=== PATIENT | female | born 1995 | race African-American/Black ===

== ENCOUNTER 2016-11-29 18:16 | Emergency (ER) | payer BC ==
[~2016-11-29] VITALS: Ht 167.6 cm; Wt 70.5 kg
[~2016-11-29 18:16] MED LIST: DICL50TA3 PO; DOXY100T PO; METR-1 PO; Z.0.BCPILL PO; ZOFR4TAB3 SL
[2016-11-29 18:18] VITALS: BP 127/74; PULSE 81; RESP 14; TEMP 98.1; O2SAT 98
--- NOTE | 2016-11-29 18:31 | PD ---
HPI Chief Complaint: Complaint Time Seen by Provider: 18:20 Travel History International Travel<30 days: No Contact w/Intl Traveler<30days: No Traveled to known affect area: No History of Present Illness HPI 21-year-old female presents for evaluation of dysuria and increased urinary frequency. Symptoms started 3 days ago. She has a burning sensation when she urinates. She notices some suprapubic discomfort as well. She denies any flank pain, nausea or vomiting, diarrhea or constipation, vaginal bleeding or discharge. She thinks that she may have had a fever 2 days ago but she is uncertain. Denies any significant past medical history. She has no other complaints at this time. PFS Past Medical History ?: Unknown LMP: 11/09/2016 Social History Alcohol Use: No Tobacco Use: Yes (rarely) Substance Use: No Allergies-Medications (Allergen,Severity, Reaction): Coded Allergies: Bee Sting (Verified Allergy, Severe, Anaphylaxis, 11/29/16) Cinnamon (Verified Adverse Reaction, Severe, Nausea/Vomiting, 11/29/16) Reported Meds & Prescriptions Reported Meds & Active Scripts Active Macrobid (Nitrofurantoin Monoh/Nitrofur Macro) 100 Mg Cap 100 Mg PO BID 7 Days Review of Systems Except as stated in HPI: all other systems reviewed are Neg Physical Exam Narrative GENERAL: Pleasant well-developed well-nourished female in no acute distress conversing comfortably on cell phone during examination. SKIN: Warm and dry. HEAD: Atraumatic. Normocephalic. EYES: Pupils equal and round. No scleral icterus. No injection or drainage. ENT: No nasal bleeding or discharge. Mucous membranes pink and moist. NECK: Trachea midline. No JVD. CARDIOVASCULAR: Regular rate and rhythm. No murmur appreciated. RESPIRATORY: No accessory muscle use. Clear to auscultation. Breath sounds equal bilaterally. GASTROINTESTINAL: Abdomen soft, mild suprapubic discomfort to palpation without guarding. There is no CVA tenderness. No palpable masses. MUSCULOSKELETAL: No obvious deformities. Normal gait. NEUROLOGICAL: Awake and alert. No obvious cranial nerve deficits. Motor grossly within normal limits. Normal speech. PSYCHIATRIC: Appropriate mood and affect; insight and judgment normal. Data Data Last Documented VS Vital Signs Date Time Temp Pulse Resp B/P Pulse Ox O2 Delivery O2 Flow Rate FiO2 11/29/16 18:18 98.1 81 14 127/74 98 Room Air Orders Urinalysis - C+S If Indicated (11/29/16 18:24) Ed Urine Pregnancytest Poc (11/29/16 18:24) Urine Culture (11/29/16 15:30) Labs Laboratory Tests Test 11/29/16 15:30 Urine Color YELLOW Urine Turbidity HAZY Urine pH 5.5 Urine Specific [place] 1.016 Urine Protein NEG mg/dL Urine Glucose (UA) NEG mg/dL Urine Ketones NEG mg/dL Urine Occult Blood NEG Urine Nitrite NEG Urine Bilirubin NEG Urine Urobilinogen LESS THAN 2.0 MG/DL Urine Leukocyte Esterase LARGE Urine RBC 3 /hpf Urine WBC 2 /hpf Urine Squamous Epithelial 15 /hpf Cells Urine Bacteria MOD /hpf Urine Mucus FEW /lpf Microscopic Urinalysis Comment CULTURE INDICATED MDM Medical Decision Making Medical Screen Exam Complete: Yes Emergency Medical Condition: Yes Medical Record Reviewed: Yes Differential Diagnosis Cystitis, urethritis, pyelonephritis, pelvic inflammatory disease, appendicitis , tubo-ovarian abscess, diverticulitis, ectopic , intrauterine Narrative Course 21-year-old female with 3 days of dysuria and increased urinary frequency. Physical examination is benign. Urinalysis and urine test were ordered. Urinalysis reveals large leukocytes, moderate bacteria, cultures pending. Urine test is negative. Pending culture results the patient will be discharged with a prescription for Macrobid. Diagnosis Primary Impression: Cystitis Additional Instructions: Medication as prescribed. Stay well hydrated and well-nourished. Follow-up with primary care physician as needed. Return for any emergent medical conditions. Med/Other Pt SpecificInfo: Prescription(s) given Scripts Nitrofurantoin Monohydrate Macrocrystals (Macrobid)100 Mg Cpd032 Mg PO BID 7 Days Ref 0 Prov:Javier Eddy MD 11/29/16 Disposition: 01 DISCHARGE HOME Condition: Stable Randy Sahu Nov 29, 2016 18:31 Randy Sahu Nov 29, 2016 18:31
[2016-11-29 18:50] LABS: BACTERIA, URINE MOD /hpf; BLOOD, URINE NEG (NEG); COMMENT (UR) CULTURE INDICATED; CULTURE IF INDICATED CULTURE INDICATED; GLUCOSE,URINE NEG (NEG); KETONE, URINE NEG (NEG); MUCUS URINE FEW /lpf (OCC); NITRITE,URINE NEG (NEG); PH, URINE 5.5 (5.0-8.5); SQUAMOUS EPITHELIAL CELL URINE 15 /hpf (0-5); URINE COLOR YELLOW (YELLW/STRAW)
[2016-11-29] MEDS ORDERED: MACR100C2 PO (18:53)
== END 2016-11-29 19:18 | disposition home or self-care (01) ==
LOC: NEPB 18:16
DX: N30.90 Cystitis, unspecified without hematuria (principal)
CPT/HCPCS: 81001; 84703; 87086; 99283

== ENCOUNTER 2017-02-13 20:48 | Emergency (ER) | payer BC ==
[~2017-02-13] VITALS: Ht 167.6 cm; Wt 68.0 kg
[~2017-02-13 20:48] MED LIST changes: -DICL50TA3 PO; -DOXY100T PO; +MACR100C2 PO; -METR-1 PO; -Z.0.BCPILL PO; -ZOFR4TAB3 SL
[2017-02-13 20:50] VITALS: BP 119/76; PULSE 88; RESP 16; TEMP 99.4; O2SAT 97
--- NOTE | 2017-02-13 21:54 | PD ---
HPI Chief Complaint: Abdominal Pain Time Seen by Provider: 21:43 Travel History International Travel<30 days: No Contact w/Intl Traveler<30days: No Traveled to known affect area: No History of Present Illness HPI 21-year-old female complains of vaginal discharge and low abdominal pelvic pain. Patient states that the pain started yesterday. Patient states that the constant pain burning pain localized to lower abdomen pelvic area. Patient denies any pain radiation. Patient states that she has vaginal discharge since yesterday also. Patient denies any fever chills. Patient denies any back pain. Patient denies any chance of being . Patient was seen in emergency room and treated last year for PID. Patient complains of dysuria and frequency also. PFSH Past Medical History Genitourinary: Yes (UTI) Tetanus Vaccination: > 5 Years Influenza Vaccination: No ?: Not LMP: 2 WEEKS AGO Past Surgical History Surgical History: No Previous Surgery Social History Alcohol Use: No Tobacco Use: No (rarely) Substance Use: No Allergies-Medications (Allergen,Severity, Reaction): Coded Allergies: Bee Sting (Verified Allergy, Severe, Anaphylaxis, 02/13/17) Cinnamon (Verified Adverse Reaction, Severe, Nausea/Vomiting, 02/13/17) Reported Meds & Prescriptions Reported Meds & Active Scripts Active Mobic (Meloxicam) 15 Mg Tab 15 Mg PO DAILY Ultram (Tramadol HCl) 50 Mg Tab 50 Mg PO Q6H PRN Flagyl (Metronidazole) 500 Mg Tab 4 Tab PO ONCE Doxycycline Hyclate 100 Mg Tab 100 Mg PO BID Review of Systems General / Constitutional: No: Fever Eyes: No: Visual changes HENT: No: Headaches Cardiovascular: No: Chest Pain or Discomfort Respiratory: No: Shortness of Breath Gastrointestinal: Positive: Abdominal Pain Genitourinary: Positive: Frequency, Dysuria, Pelvic Pain, Discharge Musculoskeletal: No: Pain Skin: No Rash Neurologic: No: Weakness Psychiatric: No: Depression Endocrine: No: Polydipsia Hematologic/Lymphatic: No: Easy Bruising Physical Exam Narrative GENERAL: Well-nourished, well-developed patient. SKIN: Focused skin assessment warm/dry. HEAD: Normocephalic. EYES: No scleral icterus. No injection or drainage. NECK: Supple, trachea midline. No JVD or lymphadenopathy. CARDIOVASCULAR: Regular rate and rhythm without murmurs, gallops, or rubs. RESPIRATORY: Breath sounds equal bilaterally. No accessory muscle use. GASTROINTESTINAL: Abdomen soft, nondistended. Patient has Mild tenderness on palpation of lower abdomen suprapubic area. No rebound tenderness. No mass. MUSCULOSKELETAL: No cyanosis, or edema. BACK: Nontender without obvious deformity. No CVA tenderness. 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 Positive cervical motion tenderness. Uterus is nonenlarged with moderate tenderness on palpation. No adnexal mass or tenderness. Data Data Last Documented VS Vital Signs Date Time Temp Pulse Resp B/P Pulse Ox O2 Delivery O2 Flow Rate FiO2 02/13/17 20:50 99.4 88 16 119/76 97 Room Air Orders Gc And Chlamydia Pcr (02/13/17 21:50) Wet Prep Profile (02/13/17 21:50) Urinalysis - C+S If Indicated (02/13/17 21:50) Ed Urine Pregnancytest Poc (02/13/17 21:50) Azithromycin Powd Pack (Zithromax Powd P (02/13/17 22:15) Ceftriaxone Inj (Rocephin Inj) (02/13/17 22:15) Urine Culture (02/13/17 21:55) Labs Laboratory Tests Test 02/13/17 21:55 Urine Color YELLOW Urine Turbidity HAZY Urine pH 6.5 Urine Specific [place] 1.019 Urine Protein TRACE mg/dL Urine Glucose (UA) NEG mg/dL Urine Ketones NEG mg/dL Urine Occult Blood NEG Urine Nitrite NEG Urine Bilirubin NEG Urine Urobilinogen LESS THAN 2.0 MG/DL Urine Leukocyte Esterase LARGE Urine RBC 5 /hpf Urine WBC 26 /hpf Urine Squamous Epithelial 2 /hpf Cells Urine Bacteria RARE /hpf Microscopic Urinalysis Comment CULTURE INDICATED Clue Cells (Wet Prep) NONE SEEN Vaginal Trichomonas (Wet Prep) NONE SEEN Vaginal Yeast (Wet Prep) NONE SEEN MDM Medical Decision Making Medical Screen Exam Complete: Yes Emergency Medical Condition: Yes Interpretation(s) 12:05 AM. UA positive for WBC and bacteria. Wet prep negative. Urine test negative. Differential Diagnosis Differential diagnosis including cervicitis,, PID, UTI, pyelonephritis, nephrolithiasis. Narrative Course 21-year-old female with vaginal discharge and low abdominal pelvic pain and dysuria and frequency. Rocephin 2050 mg IM. Zithromax 1 g by mouth. Diagnosis Primary Impression: PID (acute pelvic inflammatory disease) Patient Instructions: General Instructions Additional Instructions: Take medications as directed. Follow-up with personal physician. Call back for results of the culture. Return if worse. Med/Other Pt SpecificInfo: Prescription(s) given Scripts Meloxicam (Mobic)15 Mg Tab15 Mg PO DAILY #10 TAB Ref 0 Prov:Temo Bennett MD 02/13/17 Tramadol (Ultram)50 Mg Tab50 Mg PO Q6H PRN (PAIN) #12 TAB Ref 0 Prov:Temo Bennett MD 02/13/17 Metronidazole (Flagyl)500 Mg Tab4 Tab PO ONCE #4 TAB Ref 0 Prov:Temo Bennett MD 02/13/17 Doxycycline Hyclate 100 Mg [id number] Mg PO BID #14 TAB Prov:Temo Bennett MD 02/13/17 Disposition: 01 DISCHARGE HOME Condition: Stable Temo Bennett MD Feb 13, 2017 21:54 Temo Bennett MD Feb 13, 2017 21:54
[2017-02-13] MEDS ORDERED: ULTR50TA5 PO (22:08)
[2017-02-13] MEDS ORDERED: DOXY100T PO (22:08)
[2017-02-13] MEDS ORDERED: MOBI15TA PO (22:08)
[2017-02-13] MEDS ORDERED: METR-1 PO (22:08)
[2017-02-13 22:10] LABS: BACTERIA, URINE RARE /hpf; BLOOD, URINE NEG (NEG); COMMENT (UR) CULTURE INDICATED; CULTURE IF INDICATED CULTURE INDICATED; GLUCOSE,URINE NEG (NEG); KETONE, URINE NEG (NEG); NITRITE,URINE NEG (NEG); PH, URINE 6.5 (5.0-8.5); SQUAMOUS EPITHELIAL CELL URINE 2 /hpf (0-5); URINE COLOR YELLOW (YELLW/STRAW)
[2017-02-13] MEDS ORDERED: AZITHROMYCIN PWD FOR SUSP 1 GM PACKET PO ONE (22:15)
[2017-02-13] MEDS ORDERED: cefTRIAXone 250 MG VIAL IM ONE (22:15)
[2017-02-14 03:07] LABS: CHLAMYDIA PCR NOT DETECTED (NOT DETECT); NEISSERIA PCR NOT DETECTED (NOT DETECT)
== END 2017-02-14 00:47 | disposition home or self-care (01) ==
LOC: NEPD 20:48
DX: N73.9 Female pelvic inflammatory disease, unspecified (principal)
CPT/HCPCS: 81001; 84703; 86403; 87086; 87210; 87491; 87591; 96372; 99284; J0696

== ENCOUNTER 2017-02-16 15:40 | Emergency (ER) | payer BC ==
[~2017-02-16] VITALS: Ht 167.6 cm; Wt 69.0 kg
[~2017-02-16 15:40] MED LIST changes: +DOXY100T PO; -MACR100C2 PO; +METR-1 PO; +MOBI15TA PO; +ULTR50TA5 PO
[2017-02-16 15:43] VITALS: BP 119/72; PULSE 106; RESP 15; TEMP 99.8; O2SAT 100
[2017-02-16] MEDS ORDERED: SODIUM CHLOR 0.9% 1000 ML INJ 1,000 ML IV SCH (15:59)
[2017-02-16] MEDS ORDERED: SODIUM CHLORIDE 0.9% FLUSH 10 ML FLUSH IV FLUSH PRN (16:00)
--- NOTE | 2017-02-16 16:01 | PD ---
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 Patient states that she was seen in our emergency department 2 days ago and diagnosed with PID and a urinary tract infection and given antibiotics and discharged with doxycycline and Flagyl. States that she has been taking the antibiotics as prescribed. States that her pain has been worsening since then. She complains of subjective fevers. States that she has vomited several times but states that this occurred right after taking the pain medication she was prescribed, states that she think she is allergic to this medication. Denies diarrhea, constipation, hematuria, vaginal discharge, cough or cold symptoms. States that she started her menstrual cycle a few days ago. Denies any prior abdominal surgeries. No other complaints. PFSH Past Medical History Medical History: Denies Significant Hx Genitourinary: Yes (UTI) Tetanus Vaccination: Unknown Influenza Vaccination: No ?: Not LMP: 02/16/2017 Past Surgical History Surgical History: No Previous Surgery Social History Alcohol Use: No Tobacco Use: No Substance Use: No Allergies-Medications (Allergen,Severity, Reaction): Coded Allergies: Bee Sting (Verified Allergy, Severe, Anaphylaxis, 02/13/17) Cinnamon (Verified Adverse Reaction, Severe, Nausea/Vomiting, 02/13/17) Reported Meds & Prescriptions Reported Meds & Active Scripts Active Augmentin (Amoxicillin-Clavulanate) 875-125 mg Tab 875 Mg PO BID 10 Days not for use in CrCl <30 ml/min. Mobic (Meloxicam) 15 Mg Tab 15 Mg PO DAILY Ultram (Tramadol HCl) 50 Mg Tab 50 Mg PO Q6H PRN Flagyl (Metronidazole) 500 Mg Tab 4 Tab PO ONCE Doxycycline Hyclate 100 Mg Tab 100 Mg PO BID Review of Systems Except as stated in HPI: all other systems reviewed are Neg Physical Exam Narrative GENERAL: Well-nourished and well-developed pleasant patient in no acute distress who is nontoxic appearing. SKIN: Warm and dry. HEAD: Normocephalic and atraumatic. EYES: No injection, drainage, or hyphema noted. PERRLA. EOMI. ENT: No nasal drainage noted. Oropharynx is clear. NECK: Supple and the trachea is midline. CARDIOVASCULAR: Regular rate and rhythm. RESPIRATORY: Breath sounds are equal bilaterally with no accessory muscle use, wheezing, rhonchi, or crackles. GASTROINTESTINAL: Left, middle and right lower abdominal tenderness to palpation. Rebound tenderness. No guarding. Abdomen is soft and nondistended. MUSCULOSKELETAL: No obvious deformities, swelling, cyanosis, or ecchymosis is present throughout the upper and lower extremities. Patient has full range of motion without any signs of neurovascular compromise. NEUROLOGICAL: Awake, alert, and oriented. Normal speech and gait. Cranial nerves are grossly intact. Data Data Last Documented VS Vital Signs Date Time Temp Pulse Resp B/P Pulse Ox O2 Delivery O2 Flow Rate FiO2 02/16/17 15:43 99.8 106 15 119/72 100 Orders Complete Blood Count With Diff (02/16/17 15:59) Comprehensive Metabolic Panel (02/16/17 15:59) Lipase (02/16/17 15:59) Urinalysis - C+S If Indicated (02/16/17 15:59) Ct Abd/Pel W Iv Contrast(Rout) (02/16/17 15:59) Iv Access Insert/Monitor (02/16/17 15:59) Ecg Monitoring (02/16/17 15:59) Oximetry (02/16/17 15:59) Sodium Chlor 0.9% 1000 Ml Inj (Ns 1000 M (02/16/17 15:59) Sodium Chloride 0.9% Flush (Ns Flush) (02/16/17 16:00) Ed Urine Pregnancytest Poc (02/16/17 15:59) Urine Culture (02/16/17 16:30) Iohexol 350 Inj (Omnipaque 350 Inj) (02/16/17 17:18) Ceftriaxone Inj (Rocephin Inj) (02/16/17 18:00) Ketorolac Inj (Toradol Inj) (02/16/17 18:00) Labs Laboratory Tests Test 02/16/17 02/16/17 16:10 16:30 White Blood Count 6.8 TH/MM3 Red Blood Count 4.21 MIL/MM3 Hemoglobin 11.9 GM/DL Hematocrit 35.6 % Mean Corpuscular Volume 84.4 FL Mean Corpuscular Hemoglobin 28.3 PG Mean Corpuscular Hemoglobin 33.5 % Concent Red Cell Distribution Width 16.0 % Platelet Count 237 TH/MM3 Mean Platelet Volume 8.8 FL Neutrophils (%) (Auto) 69.8 % Lymphocytes (%) (Auto) 9.6 % Monocytes (%) (Auto) 18.5 % Eosinophils (%) (Auto) 0.0 % Basophils (%) (Auto) 2.1 % Neutrophils # (Auto) 4.8 TH/MM3 Lymphocytes # (Auto) 0.7 TH/MM3 Monocytes # (Auto) 1.3 TH/MM3 Eosinophils # (Auto) 0.0 TH/MM3 Basophils # (Auto) 0.1 TH/MM3 CBC Comment DIFF FINAL Differential Comment Sodium Level 138 MEQ/L Potassium Level 3.5 MEQ/L Chloride Level 104 MEQ/L Carbon Dioxide Level 25.6 MEQ/L Anion Gap 8 MEQ/L Blood Urea Nitrogen 7 MG/DL Creatinine 0.89 MG/DL Estimat Glomerular Filtration 98 ML/MIN Rate Random Glucose 87 MG/DL Calcium Level 8.5 MG/DL Total Bilirubin 0.2 MG/DL Aspartate Amino Transf 23 U/L (AST/SGOT) Alanine Aminotransferase 22 U/L (ALT/SGPT) Alkaline Phosphatase 69 U/L Total Protein 7.4 GM/DL Albumin 3.4 GM/DL Lipase 57 U/L Urine Color YELLOW Urine Turbidity HAZY Urine pH 5.5 Urine Specific [place] 1.015 Urine Protein 30 mg/dL Urine Glucose (UA) NEG mg/dL Urine Ketones NEG mg/dL Urine Occult Blood LARGE Urine Nitrite NEG Urine Bilirubin NEG Urine Urobilinogen LESS THAN 2.0 MG/DL Urine Leukocyte Esterase LARGE Urine RBC 59 /hpf Urine WBC 66 /hpf Urine Squamous Epithelial 2 /hpf Cells Urine Mucus FEW /lpf Microscopic Urinalysis Comment CULTURE INDICATED MDM Medical Decision Making Medical Screen Exam Complete: Yes Emergency Medical Condition: Yes Differential Diagnosis Cystitis versus pyelonephritis versus abscess versus colitis versus other Narrative Course 21-year-old female presents to the emergency department for evaluation of lower abdominal pain and painful urination. Patient has a low-grade temperature of 99.8F. She is tachycardic with a heart rate of 106 bpm. She does have tenderness to palpation of her lower abdomen. She was seen here 2 days ago and given Rocephin and Zithromax in the ED and discharged with Flagyl and doxycycline. She's been taking the antibiotics appropriately. She was negative for gonorrhea and chlamydia. Her urine is growing group B beta strep. IV access is obtained, labs were drawn and sent. Patient is placed on cardiac telemetry and pulse oximetry monitoring. CT of the abdomen and pelvis has been ordered is pending. Patient is administered IV fluids. CBC is unremarkable. CMP is unremarkable. Urinalysis shows 30 protein, large occult blood, large leukocyte esterase, 59 red blood cells, 66 white blood cells, few mucus. CT the abdomen and pelvis shows unremarkable study except for slight nonspecific fluid within the endometrial canal. Likely secondary to menstruation. The patient's urinalysis is worse today than it was 2 days ago when she was seen here. The patient is given Rocephin 1 g IV and Toradol 30 mg IV. She will be prescribed Augmentin for her urinary tract infection. Discussed return precautions and advised to follow-up with her PCP. Patient verbalizes understanding and agreement with treatment plan. I discussed the case with my attending physician Dr. Sanchez who is aware of the patients history, physical examination findings, and treatment plan. Diagnosis Primary Impression: Urinary tract infection Qualified Code: N39.0 - Urinary tract infection with hematuria, site unspecified Referrals: Primary Care Physician Patient Instructions: General Instructions, Urinary Tract Infection in Women ( ED) Additional Instructions: Take medication as prescribed with food and a full glass of water. Follow-up with your Primary Care Physician. Return to the ED for any acute worsening of symptoms. Med/Other Pt SpecificInfo: Prescription(s) given Scripts Amoxicillin-Clavulanate (Augmentin)875-125 mg Cuw019 Mg PO BID 10 Days Ref 0 not for use in CrCl <30 ml/min. Prov:Arin Sanchez MD 02/16/17 Disposition: 01 DISCHARGE HOME Condition: Stable Che Goodrich Feb 16, 2017 16:01
[2017-02-16 16:42] LABS: AUTOMATED NEUTROPHIL # 4.8 TH/MM3 (1.8-7.7); BASOPHIL # 0.1 TH/MM3 (0-0.2); BASOPHIL % 2.1 % (0.0-2.0); HEMATOCRIT 35.6 % (35.0-46.0); HEMO FLAGS DIFF FINAL; LYMPH % 9.6 % (9.0-44.0); LYMPHOCYTE # 0.7 TH/MM3 (1.0-4.8); MEAN CELL VOLUME 84.4 FL (80.0-100.0); MEAN CORPUSCULAR HEMOGLOBIN 28.3 PG (27.0-34.0); MEAN CORPUSCULAR HGB CONC 33.5 % (32.0-36.0); MONO % 18.5 % (0.0-8.0); NEUT % 69.8 % (16.0-70.0); PLATELET COUNT 237 TH/MM3 (150-450); RED BLOOD COUNT 4.21 MIL/MM3 (4.00-5.30); WHITE BLOOD COUNT 6.8 TH/MM3 (4.0-11.0)
[2017-02-16 17:02] LABS: BLOOD, URINE LARGE (NEG); COMMENT (UR) CULTURE INDICATED; CULTURE IF INDICATED CULTURE INDICATED; GLUCOSE,URINE NEG (NEG); KETONE, URINE NEG (NEG); MUCUS URINE FEW /lpf (OCC); NITRITE,URINE NEG (NEG); PH, URINE 5.5 (5.0-8.5); SQUAMOUS EPITHELIAL CELL URINE 2 /hpf (0-5); URINE COLOR YELLOW (YELLW/STRAW)
[2017-02-16 17:16] LABS: ALT (GPT) 22 U/L (9-42); ANION GAP 8 MEQ/L (5-15); AST (GOT) 23 U/L (16-38); BICARBONATE 25.6 MEQ/L (21.0-32.0); BLOOD UREA NITROGEN 7 MG/DL (7-18); CHLORIDE 104 MEQ/L (98-107); GLOMERULAR FILTRATION RATE 98 ML/MIN (>89); POTASSIUM 3.5 MEQ/L (3.5-5.1); SODIUM (NA) 138 MEQ/L (136-145)
[2017-02-16 17:18] LABS: ALKALINE PHOSPHATASE 69 U/L (45-117); TOTAL BILIRUBIN ADULT 0.2 MG/DL (0.2-1.0)
[2017-02-16] MEDS ORDERED: IOHEXOL 350 MG/ML 10 ML VIAL (for RAD DIAG) IV ONE (17:18)
--- NOTE | 2017-02-16 17:41 | RADRPT ---
EXAM DATE/TIME: 02/16/2017 17:13 [facility] COMPARISON: CT ABDOMEN & PELVIS W/O CONTRAST, February 17, 2016, 2:42. INDICATIONS : Abdomen pain. IV CONTRAST: 90 cc Omnipaque 350 (iohexol) IV ORAL CONTRAST: No oral contrast ingested. RADIATION DOSE: 7.43 CTDIvol (mGy) MEDICAL HISTORY : None SURGICAL HISTORY : None. ENCOUNTER: Initial ACUITY: 1 day PAIN SCALE: 3/10 LOCATION: Bilateral abdomen. TECHNIQUE: Volumetric scanning of the abdomen and pelvis was performed. Using automated exposure control and ad justment of the mA and/or kV according to patient size, radiation dose was kept as low as reasonably achievable to obtain optimal diagnostic quality images. FINDINGS: CT Abdomen: The liver, spleen, pancreas, kidneys, adrenals are unremarkable. There is no evidence for any appreciable pathological adenopathy, free fluid, or bowel obstruction. CT pelvis: There is no evidence for mass, abscess formation, or any significant adenopathy within the pelvis. There is slight nonspecific fluid within the endometrial canal. CONCLUSION: Essentially unremarkable study except for slight nonspecific fluid within the endomet rial canal. Lorna Urbina MD on February 16, 2017 at 17:36 Board Certified Radiologist. This report was verified electronically.
[2017-02-16] MEDS ORDERED: AUGM875T PO (17:55)
[2017-02-16] MEDS ORDERED: cefTRIAXone INJ 1,000 MG in SODIUM CHLORIDE 0.9% INJ 100 ML IV ONE (18:00)
[2017-02-16] MEDS ORDERED: KETOROLAC TROMETHAMINE 30 MG/ML (IVP) VIAL IV PUSH ONE (18:00)
== END 2017-02-16 18:34 | disposition home or self-care (01) ==
LOC: NEPD 15:40
DX: N39.0 Urinary tract infection, site not specified (principal); B96.89 Other specified bacterial agents as the cause of diseases classified elsewhere; R31.9 Hematuria, unspecified
CPT/HCPCS: 74177; 80053; 81001; 83690; 84703; 85025; 87086; 96361; 96374; 96375; 99284; J0696; J1885; J7030; Q9967

== ENCOUNTER 2017-10-16 07:58 | Emergency (ER) | payer BC ==
[~2017-10-16] VITALS: Ht 167.6 cm; Wt 72.0 kg
[~2017-10-16 07:58] MED LIST changes: +AUGM875T PO; +TRAM50 PO; -ULTR50TA5 PO
[2017-10-16 08:01] VITALS: BP 117/82; PULSE 77; RESP 18; TEMP 99.2; O2SAT 100
[2017-10-16] MEDS ORDERED: VALA500T PO (08:15)
--- NOTE | 2017-10-16 08:27 | PD ---
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 Patient states that her significant other was just diagnosed with Trichomonas. She is unknown if she is . Does have a history of Trichomonas in the past. States that she's been having some whitish vaginal discharge. No vaginal bleeding, no fevers no diarrhea or constipation. Symptoms for the past few days, gradually worsening, minimal in severity, context as above, location as above. PFSH Past Medical History Medical History: Denies Significant Hx Genitourinary: Yes (UTI) ?: Unknown LMP: 09/25/17 Past Surgical History Surgical History: No Previous Surgery Social History Alcohol Use: No Tobacco Use: No Substance Use: No Allergies-Medications (Allergen,Severity, Reaction): Coded Allergies: bee venom protein (honey bee) (Unverified Allergy, Severe, Anaphylaxis, ) cinnamon (Unverified Adverse Reaction, Severe, Nausea/Vomiting, 10/16/17) Reported Meds & Prescriptions Reported Meds & Active Scripts Active Flagyl (Metronidazole) 500 Mg Tab 500 Mg PO TIDBID 7 Days Reported Valacyclovir (Valacyclovir HCl) 500 Mg Tab 500 Mg PO DAILY Review of Systems Except as stated in HPI: all other systems reviewed are Neg Physical Exam Narrative GENERAL: Well-developed well-nourished in no obvious distress SKIN: Focused skin assessment warm/dry. HEAD: Atraumatic. Normocephalic. EYES: Pupils equal and round. No scleral icterus. No injection or drainage. ENT: No nasal bleeding or discharge. Mucous membranes pink and moist. NECK: Trachea midline. No JVD. CARDIOVASCULAR: Regular rate and rhythm. No murmur appreciated. RESPIRATORY: No accessory muscle use. Clear to auscultation. Breath sounds equal bilaterally. GASTROINTESTINAL: Abdomen soft, non-tender, nondistended. Hepatic and splenic margins not palpable. GENITOURINARY: Exam performed with female nurse certified registered nurse anesthetist present at all times, scant white vaginal discharge consistent with BV, no cervical motion tenderness no bimanual tenderness. No cervical friability. No lesions seen in the vaginal vault nor the external genitalia. MUSCULOSKELETAL: No obvious deformities. No clubbing. No cyanosis. No edema. NEUROLOGICAL: Awake and alert. No obvious cranial nerve deficits. Motor grossly within normal limits. Normal speech. PSYCHIATRIC: Appropriate mood and affect; insight and judgment normal. Data Data Last Documented VS Vital Signs Date Time Temp Pulse Resp B/P (MAP) Pulse Ox O2 Delivery O2 Flow Rate FiO2 10/16/17 10:13 10/16/17 08:01 99.2 77 18 100 Room Air Orders Orders Urinalysis - C+S If Indicated (10/16/17 08:06) Ed Urine Pregnancytest Poc (10/16/17 08:06) Wet Prep Profile (10/16/17 08:09) Gc And Chlamydia Pcr (10/16/17 08:09) Gc And Chlamydia Pcr (10/16/17 08:29) Wet Prep Profile (10/16/17 08:29) Urinalysis - C+S If Indicated (10/16/17 08:29) Ceftriaxone Inj (Rocephin Inj) (10/16/17 08:45) Lidocaine 1% Inj (50 Ml) (Xylocaine 1% I (10/16/17 08:45) Metronidazole (Flagyl) (10/16/17 08:45) Ondansetron Odt (Zofran Odt) (10/16/17 08:45) Azithromycin (Zithromax) (10/16/17 08:45) Ed Discharge Order (10/16/17 09:57) Labs Laboratory Tests Test 10/16/17 08:28 10/16/17 08:30 Urine Color YELLOW Urine Turbidity HAZY Urine pH 6.0 Urine Specific [place] 1.014 Urine Protein NEG mg/dL Urine Glucose (UA) NEG mg/dL Urine Ketones NEG mg/dL Urine Occult Blood NEG Urine Nitrite NEG Urine Bilirubin NEG Urine Urobilinogen LESS THAN 2.0 MG/DL Urine Leukocyte Esterase NEG Urine RBC LESS THAN 1 /hpf Urine WBC 2 /hpf Urine Squamous Epithelial Cells 7 /hpf Urine Bacteria RARE /hpf Microscopic Urinalysis Comment CULT NOT INDICATED Clue Cells (Wet Prep) PRESENT Vaginal Trichomonas (Wet Prep) NONE SEEN Vaginal Yeast (Wet Prep) NONE SEEN Chlamydia trachomatis DNA (PCR) NOT DETECTED Neisseria gonorrhoeae DNA (PCR) NOT DETECTED MDM Medical Decision Making Medical Screen Exam Complete: Yes Emergency Medical Condition: Yes Differential Diagnosis STD exposure, Trichomonas, BV, CV, . Narrative Course test negative, abdominal exam benign, vaginal exam consistent with BV. The patient treated empirically for GC CT and Trichomonas. Flagyl prescription to go home with. Discussed follow-up and return to ED criteria. Diagnosis Primary Impression: Bacterial vaginosis Additional Impression: Trichomonas exposure Additional Instructions: Recommend follow-up with the health department for testing for hepatitis HIV and syphilis. No sex for at least one week, no alcohol while taking the medicine. The need to have your partner(s) tested and treated prior to resuming sexual activity. Recommending the use of condoms during every sexual encounter to prevent spread of STDs. Scripts Metronidazole (Flagyl) 500 Mg Tab 500 MG PO TIDBID for Infection for 7 Days, TAB 0 Refills Prov: Javed Callejas MD 10/16/17 Disposition: 01 DISCHARGE HOME Condition: Stable Javed Callejas MD Oct 16, 2017 08:27
[2017-10-16] MEDS ORDERED: cefTRIAXone 250 MG VIAL IM ONE (08:45)
[2017-10-16] MEDS ORDERED: LIDOCAINE HCL 1% 50 ML VIAL XX ONE (08:45)
[2017-10-16] MEDS ORDERED: metroNIDAZOLE 500 MG TAB PO ONE (08:45)
[2017-10-16] MEDS ORDERED: AZITHROMYCIN 250 MG TAB PO ONE (08:45)
[2017-10-16] MEDS ORDERED: ONDANSETRON ODT 4 MG TAB PO ONE (08:45)
[2017-10-16 08:59] LABS: BACTERIA, URINE RARE /hpf; BILIRUBIN, URINE NEG (NEG); BLOOD, URINE NEG (NEG); GLUCOSE,URINE NEG (NEG); KETONE, URINE NEG (NEG); NITRITE,URINE NEG (NEG); SQUAMOUS EPITHELIAL CELL URINE 7 /hpf (0-5); URINE COLOR YELLOW (YELLW/STRAW); URINE LEUKOCYTE ESTERASE NEG (NEG)
[2017-10-16] MEDS ORDERED: METR-1 PO (09:57)
== END 2017-10-16 10:13 | disposition home or self-care (01) ==
LOC: NEPE 07:58
DX: N76.0 Acute vaginitis (principal); B96.89 Other specified bacterial agents as the cause of diseases classified elsewhere; Z20.2 Contact with and (suspected) exposure to infections with a predominantly sexual mode of transmission
CPT/HCPCS: 81001; 84703; 87210; 87491; 87591; 96372; 99283; J0696

== ENCOUNTER 2017-11-20 00:01 | Emergency (ER) | payer BC ==
[~2017-11-20] VITALS: Ht 167.6 cm; Wt 69.0 kg
[~2017-11-20 00:01] MED LIST changes: -AUGM875T PO; -DOXY100T PO; -MOBI15TA PO; -TRAM50 PO; +VALA500T PO
[2017-11-20 00:04] VITALS: BP 109/77; PULSE 84; RESP 16; TEMP 97.7; O2SAT 100
--- NOTE | 2017-11-20 00:27 | PD ---
HPI Chief Complaint: Related Problem Time Seen by Provider: 00:17 Travel History International Travel<30 days: No Contact w/Intl Traveler<30days: No Traveled to known affect area: No History of Present Illness HPI 22-year-old female presents to the emergency department for evaluation of possible . Patient states that she has had urinary frequency over last 2-3 days of bleeding she may be . Her last menstrual cycle she refers 2018. It was a normal menstrual cycle. She denies abdominal pain, nausea, vomiting. She has no abdominal cramping, vaginal bleeding, or discharge. Patient has no other symptoms to report. PFSH Past Medical History Medical History: Denies Significant Hx Genitourinary: Yes (UTI) Tetanus Vaccination: < 5 Years Influenza Vaccination: No ?: Unknown Past Surgical History Surgical History: No Previous Surgery Social History Alcohol Use: No Tobacco Use: No Substance Use: No Allergies-Medications (Allergen,Severity, Reaction): Coded Allergies: bee venom protein (honey bee) (Unverified Allergy, Severe, Anaphylaxis, ) cinnamon (Unverified Adverse Reaction, Severe, Nausea/Vomiting, 10/16/17) Reported Meds & Prescriptions Reported Meds & Active Scripts Active Review of Systems Except as stated in HPI: all other systems reviewed are Neg Physical Exam Narrative GENERAL: Well-nourished, well-developed female patient in no acute distress. SKIN: Focused skin assessment warm/dry. HEAD: Normocephalic. EYES: No scleral icterus. No injection or drainage. NECK: Supple, trachea midline. No JVD or lymphadenopathy. CARDIOVASCULAR: Regular rate and rhythm without murmurs, gallops, or rubs. RESPIRATORY: Breath sounds equal bilaterally. No accessory muscle use. GASTROINTESTINAL: Abdomen soft, non-tender, nondistended. No rebound tenderness. No guarding. MUSCULOSKELETAL: No cyanosis, or edema. BACK: Nontender without obvious deformity. No CVA tenderness. Data Data Last Documented VS Vital Signs Date Time Temp Pulse Resp B/P (MAP) Pulse Ox O2 Delivery O2 Flow Rate FiO2 11/20/17 00:04 97.7 84 16 109/77 (88) 100 Room Air Orders Orders Ed Urine Pregnancytest Poc (11/20/17 00:23) Urinalysis - C+S If Indicated (11/20/17 00:23) Ed Discharge Order (11/20/17 01:05) Labs Laboratory Tests Test 11/20/17 00:34 Urine Color COLORLESS Urine Turbidity CLEAR Urine pH 5.5 Urine Specific [place] 1.002 Urine Protein NEG mg/dL Urine Glucose (UA) NEG mg/dL Urine Ketones NEG mg/dL Urine Occult Blood NEG Urine Nitrite NEG Urine Bilirubin NEG Urine Urobilinogen LESS THAN 2.0 MG/DL Urine Leukocyte Esterase NEG Urine RBC 4 /hpf Urine WBC 1 /hpf Urine Squamous Epithelial Cells 2 /hpf Urine Amorphous Sediment RARE Urine Bacteria OCC /hpf Microscopic Urinalysis Comment CULT NOT INDICATED MDM Medical Decision Making Medical Screen Exam Complete: Yes Emergency Medical Condition: Yes Medical Record Reviewed: Yes Differential Diagnosis intrauterine versus ectopic versus UTI versus STD Narrative Course 22-year-old female presents emergency department for evaluation of possible regnancy. Patient has no current symptoms at this time except for urinary frequency. Abdominal exam is benign. Urinalysis is complete. Urine test is positive. Laboratory Tests Test 11/20/17 00:34 Urine Color COLORLESS Urine Turbidity CLEAR Urine pH 5.5 Urine Specific [place] 1.002 Urine Protein NEG mg/dL Urine Glucose (UA) NEG mg/dL Urine Ketones NEG mg/dL Urine Occult Blood NEG Urine Nitrite NEG Urine Bilirubin NEG Urine Urobilinogen LESS THAN 2.0 MG/DL Urine Leukocyte Esterase NEG Urine RBC 4 /hpf Urine WBC 1 /hpf Urine Squamous Epithelial Cells 2 /hpf Urine Amorphous Sediment RARE Urine Bacteria OCC /hpf Microscopic Urinalysis Comment CULT NOT INDICATED I discussed the patient with my attending. Patient is discharged to follow-up with [facility] [facility] [employer] outpatient. She agrees to return immediately with any acute worsening symptoms. Diagnosis Primary Impression: Qualified Codes: Z3A.01 - Less than 8 weeks gestation of Referrals: [facility] Patient Instructions: General Instructions, Diet (GEN) Additional Instructions: Seek [employer] follow-up [id number] vitamins are recommended Return immediately with any acute worsening symptoms Med/Other Pt SpecificInfo: No Change to Meds Disposition: 01 DISCHARGE HOME Condition: Stable Marcy Hanks Nov 20, 2017 00:26
[2017-11-20 01:03] LABS: AMORPHOUS SEDIMENT, URINE RARE; BACTERIA, URINE OCC /hpf; BILIRUBIN, URINE NEG (NEG); BLOOD, URINE NEG (NEG); GLUCOSE,URINE NEG (NEG); KETONE, URINE NEG (NEG); NITRITE,URINE NEG (NEG); PH, URINE 5.5 (5.0-8.5); SQUAMOUS EPITHELIAL CELL URINE 2 /hpf (0-5); URINE COLOR COLORLESS (YELLW/STRAW); URINE LEUKOCYTE ESTERASE NEG (NEG)
== END 2017-11-20 01:31 | disposition home or self-care (01) ==
LOC: NEPD 00:01
DX: O26.891 Other specified pregnancy related conditions, first trimester (principal); Z3A.01 Less than 8 weeks gestation of pregnancy
CPT/HCPCS: 81001; 84703; 99283

== ENCOUNTER 2017-12-13 23:50 | Emergency (ER) | payer BC ==
[~2017-12-13] VITALS: Ht 165.1 cm; Wt 65.0 kg
[2017-12-13 23:51] VITALS: BP 122/61; PULSE 86; RESP 16; TEMP 98.6; O2SAT 100
[2017-12-14 01:13] VITALS: O2SAT 100
[2017-12-14 01:32] LABS: AUTOMATED NEUTROPHIL # 6.8 TH/MM3 (1.8-7.7); BASOPHIL % 0.3 % (0.0-2.0); EOSINOPHIL # 0.1 TH/MM3 (0-0.4); EOSINOPHIL % 0.7 % (0.0-4.0); HEMATOCRIT 34.8 % (35.0-46.0); HEMOGLOBIN 11.8 GM/DL (11.6-15.3); LYMPH % 27.6 % (9.0-44.0); MEAN CELL VOLUME 92.9 FL (80.0-100.0); MEAN CORPUSCULAR HEMOGLOBIN 31.6 PG (27.0-34.0); MEAN PLATELET VOLUME 8.1 FL (7.0-11.0); MONO % 8.9 % (0.0-8.0); NEUT % 62.5 % (16.0-70.0); PLATELET COUNT 259 TH/MM3 (150-450); RED BLOOD COUNT 3.75 MIL/MM3 (4.00-5.30); RED CELL DISTRIBUTION WIDTH 14.2 % (11.6-17.2); WHITE BLOOD COUNT 10.8 TH/MM3 (4.0-11.0)
[2017-12-14 01:35] LABS: BACTERIA, URINE RARE /hpf; BILIRUBIN, URINE NEG (NEG); BLOOD, URINE NEG (NEG); GLUCOSE,URINE NEG (NEG); KETONE, URINE NEG (NEG); NITRITE,URINE NEG (NEG); SQUAMOUS EPITHELIAL CELL URINE 2 /hpf (0-5); URINE COLOR LIGHT-YELLOW (YELLW/STRAW); URINE LEUKOCYTE ESTERASE LARGE (NEG)
[2017-12-14 01:59] LABS: ALBUMIN 3.6 GM/DL (3.4-5.0); ALT (GPT) 22 U/L (10-53); AST (GOT) 32 U/L (15-37); BICARBONATE 25.5 MEQ/L (21.0-32.0); BLOOD UREA NITROGEN 6 MG/DL (7-18); CALCIUM 8.3 MG/DL (8.5-10.1); CHLORIDE 106 MEQ/L (98-107); CREATININE 0.58 MG/DL (0.50-1.00); GLOMERULAR FILTRATION RATE 159 ML/MIN (>89); GLUCOSE,RANDOM 82 MG/DL (74-106); SODIUM (NA) 137 MEQ/L (136-145)
[2017-12-14 02:04] LABS: ALKALINE PHOSPHATASE 51 U/L (45-117); TOTAL BILIRUBIN ADULT 0.2 MG/DL (0.2-1.0); TOTAL PROTEIN 7.4 GM/DL (6.4-8.2)
--- NOTE | 2017-12-14 04:32 | PD ---
HPI Chief Complaint: Related Problem Time Seen by Provider: 01:27 Travel History International Travel<30 days: No Contact w/Intl Traveler<30days: No Traveled to known affect area: No History of Present Illness HPI 22-year-old female 1 para 0 AB 0 approximately 6-1/2-8 weeks has been followed at [facility] for with ultrasound performed identifying intrauterine presents with lower abdominal pain and vaginal discharge without vaginal bleeding has noted dysuria [facility] Past Medical History Narrative Medical Negative past medical history negative surgical history no tobacco use nursing notes reviewed Genitourinary: Yes (UTI) Immunizations Current: Yes Tetanus Vaccination: Unknown Influenza Vaccination: No ?: Social History Alcohol Use: No Tobacco Use: No Substance Use: No Allergies-Medications (Allergen,Severity, Reaction): Coded Allergies: bee venom protein (honey bee) (Unverified Allergy, Severe, Anaphylaxis, ) cinnamon (Unverified Adverse Reaction, Severe, Nausea/Vomiting, 12/14/17) Reported Meds & Prescriptions Reported Meds & Active Scripts Active Clotrimazole 7 Vaginal (Clotrimazole Vaginal) 1% Cream 1 Appl VAGINAL HS Macrobid (Nitrofurantoin Monohydrate Macrocrystals) 100 Mg Capsule 100 Mg PO BID 7 Days Review of Systems Except as stated in HPI: all other systems reviewed are Neg Physical Exam Narrative GENERAL: Well-developed well-nourished female no acute distress or respiratory distress SKIN: Warm and dry. HEAD: Normocephalic. EYES: No scleral icterus. No injection or drainage. NECK: Supple, trachea midline. No JVD or lymphadenopathy. CARDIOVASCULAR: Regular rate and rhythm without murmurs, gallops, or rubs. RESPIRATORY: Breath sounds equal bilaterally. No accessory muscle use. GASTROINTESTINAL: Abdomen soft, non-tender, nondistended. Pelvic exam: Normal external exam no redness induration or lesion; speculum exam scant white mucus no yellow green discharge no blood no clots no tissue cervical loss is closed; bimanual exam no adnexal tenderness or mass no cervical motion tenderness cervical loss closed MUSCULOSKELETAL: No cyanosis, or edema. BACK: Nontender without obvious deformity. No CVA tenderness. Data Data Last Documented VS Vital Signs Date Time Temp Pulse Resp B/P (MAP) Pulse Ox O2 Delivery O2 Flow Rate FiO2 12/14/17 05:14 12/14/17 01:13 100 Room Air 12/13/17 23:51 98.6 86 16 Orders Orders Complete Blood Count With Diff (12/14/17 01:09) Comprehensive Metabolic Panel (12/14/17 01:09) Urinalysis - C+S If Indicated (12/14/17 01:09) Ed Urine Pregnancytest Poc (12/14/17 01:09) Iv Access Insert/Monitor (12/14/17 01:09) Oxygen Administration (12/14/17 01:09) Oximetry (12/14/17 01:09) Lipase (12/14/17 01:09) Beta Hcg (Quant/Titer) (12/14/17 01:09) Influenzae A/B Antigen (12/14/17 01:27) Wet Prep Profile (12/14/17 04:20) Gc And Chlamydia Pcr (12/14/17 04:20) Ceftriaxone Inj (Rocephin Inj) (12/14/17 05:15) Ed Discharge Order (12/14/17 05:13) Labs Laboratory Tests Test 12/14/17 01:12 12/14/17 04:29 White Blood Count 10.8 TH/MM3 Red Blood Count 3.75 MIL/MM3 Hemoglobin 11.8 GM/DL Hematocrit 34.8 % Mean Corpuscular Volume 92.9 FL Mean Corpuscular Hemoglobin 31.6 PG Mean Corpuscular Hemoglobin Concent 34.0 % Red Cell Distribution Width 14.2 % Platelet Count 259 TH/MM3 Mean Platelet Volume 8.1 FL Neutrophils (%) (Auto) 62.5 % Lymphocytes (%) (Auto) 27.6 % Monocytes (%) (Auto) 8.9 % Eosinophils (%) (Auto) 0.7 % Basophils (%) (Auto) 0.3 % Neutrophils # (Auto) 6.8 TH/MM3 Lymphocytes # (Auto) 3.0 TH/MM3 Monocytes # (Auto) 1.0 TH/MM3 Eosinophils # (Auto) 0.1 TH/MM3 Basophils # (Auto) 0.0 TH/MM3 CBC Comment DIFF FINAL Differential Comment Urine Color LIGHT-YELLOW Urine Turbidity HAZY Urine pH 6.0 Urine Specific [place] 1.005 Urine Protein NEG mg/dL Urine Glucose (UA) NEG mg/dL Urine Ketones NEG mg/dL Urine Occult Blood NEG Urine Nitrite NEG Urine Bilirubin NEG Urine Urobilinogen LESS THAN 2.0 MG/DL Urine Leukocyte Esterase LARGE Urine RBC 5 /hpf Urine WBC 5 /hpf Urine Squamous Epithelial Cells 2 /hpf Urine Bacteria RARE /hpf Microscopic Urinalysis Comment CULT NOT INDICATED Blood Urea Nitrogen 6 MG/DL Creatinine 0.58 MG/DL Random Glucose 82 MG/DL Total Protein 7.4 GM/DL Albumin 3.6 GM/DL Calcium Level 8.3 MG/DL Alkaline Phosphatase 51 U/L Aspartate Amino Transf (AST/SGOT) 32 U/L Alanine Aminotransferase (ALT/SGPT) 22 U/L Total Bilirubin 0.2 MG/DL Sodium Level 137 MEQ/L Potassium Level 4.0 MEQ/L Chloride Level 106 MEQ/L Carbon Dioxide Level 25.5 MEQ/L Anion Gap 6 MEQ/L Estimat Glomerular Filtration Rate 159 ML/MIN Lipase 93 U/L Human Chorionic Gonadotropin, Quant 94366 MIU/ML Clue Cells (Wet Prep) NS Vaginal Trichomonas (Wet Prep) NS Vaginal Yeast (Wet Prep) NS Chlamydia trachomatis DNA (PCR) NOT DETECTED Neisseria gonorrhoeae DNA (PCR) NOT DETECTED MDM Medical Decision Making Medical Screen Exam Complete: Yes Emergency Medical Condition: Yes Medical Record Reviewed: Yes Interpretation(s) CBC & BMP Diagram 12/14/17 01:12 Total Protein 7.4, Albumin 3.6, Calcium Level 8.3 L, Alkaline Phosphatase 51, Aspartate Amino Transf (AST/SGOT) 32, Alanine Aminotransferase (ALT/SGPT) 22, Total Bilirubin 0.2 Vital Signs Date Time Temp Pulse Resp B/P (MAP) Pulse Ox O2 Delivery O2 Flow Rate FiO2 12/14/17 01:13 100 Room Air 12/14/17 01:13 99 Room Air 12/13/17 23:51 98.6 86 16 122/61 (81) 100 Room Air Differential Diagnosis Pelvic pain, abdominal pain, UTI, appendicitis, ectopic , threatened AB , dehydration Narrative Course After informed verbal consent using curvilinear probe and longitudinal and transverse views intrauterine identified with heart rate of 144 Diagnosis Primary Impression: Qualified Codes: Z3A.08 - 8 weeks gestation of Referrals: [facility] [employer] 2 days Patient Instructions: General Instructions Additional Instructions: Increase fluid hydration Take vitamins Take acetaminophen/Tylenol as needed for minor pain or for fever 100.4F or greater Pelvic rest Disposition: 01 DISCHARGE HOME Condition: Stable Susie Lezama. MD Dec 14, 2017 04:32
[2017-12-14] MEDS ORDERED: cefTRIAXone 250 MG VIAL IV ONE (05:15)
== END 2017-12-14 06:07 | disposition home or self-care (01) ==
LOC: NEPC 23:50
DX: O26.891 Other specified pregnancy related conditions, first trimester (principal); R10.30 Lower abdominal pain, unspecified; O23.31 Infections of other parts of urinary tract in pregnancy, first trimester; N89.8 Other specified noninflammatory disorders of vagina; R30.0 Dysuria; Z3A.01 Less than 8 weeks gestation of pregnancy
CPT/HCPCS: 80053; 81001; 83690; 84702; 84703; 85025; 87210; 87491; 87591; 87804; 96374; 99284; J0696

== ENCOUNTER 2017-12-16 12:23 | Emergency (ER) | payer BC ==
[2017-12-16 12:54] VITALS: BP 116/61; PULSE 79; RESP 16; TEMP 98.9; O2SAT 100
--- NOTE | 2017-12-16 13:50 | PD ---
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 Patient states this started on , 4 days ago. Patient was seen in the emergency department and discharged 2 days ago. At that time, no acute abnormality was seen in lab work. Beta hCG was 57,400. UA was negative for acute infection. Chlamydia and gonorrhea were negative. Ultrasound was completed which showed intrauterine with heart rate in the 144. Patient states she has an appointment on Saturday with her pipeline engineer. Patient is a G1, P0. She denies any vaginal bleeding. No exacerbating or alleviating factors. Moderate severity. Current pain 9/10 in the lower abdomen without radiation. PFSH Past Medical History Genitourinary: Yes (UTI) Immunizations Current: Yes ?: Social History Alcohol Use: No Tobacco Use: No Substance Use: No Allergies-Medications (Allergen,Severity, Reaction): Coded Allergies: bee venom protein (honey bee) (Unverified Allergy, Severe, Anaphylaxis, ) cinnamon (Unverified Adverse Reaction, Severe, Nausea/Vomiting, 12/14/17) Reported Meds & Prescriptions Reported Meds & Active Scripts Active No Active Prescriptions or Reported Medications Review of Systems Except as stated in HPI: all other systems reviewed are Neg Physical Exam Narrative GENERAL: Well-nourished, well-developed female patient, ambulatory. Afebrile. SKIN: Focused skin assessment warm/dry. HEAD: Normocephalic. Atraumatic. EYES: No scleral icterus. No injection or drainage. NECK: Supple, trachea midline. No JVD or lymphadenopathy. CARDIOVASCULAR: Regular rate and rhythm without murmurs, gallops, or rubs. RESPIRATORY: Breath sounds equal bilaterally. No accessory muscle use. Lungs sounds are clear to auscultation. GASTROINTESTINAL: Abdomen soft, non-tender, nondistended. No abdominal or pelvic tenderness to palpation. MUSCULOSKELETAL: No cyanosis, or edema. BACK: Nontender without obvious deformity. No CVA tenderness. Data Data Last Documented VS Vital Signs Date Time Temp Pulse Resp B/P (MAP) Pulse Ox O2 Delivery O2 Flow Rate FiO2 12/16/17 12:54 98.9 79 16 116/61 (79) 100 Orders Orders Urinalysis - C+S If Indicated (12/16/17 12:56) Ed Urine Pregnancytest Poc (12/16/17 13:31) Urine Culture (12/16/17 13:30) Labs Laboratory Tests Test 12/16/17 13:30 Urine Color YELLOW Urine Turbidity HAZY Urine pH 6.0 Urine Specific [place] 1.013 Urine Protein TRACE mg/dL Urine Glucose (UA) NEG mg/dL Urine Ketones 40 mg/dL Urine Occult Blood TRACE Urine Nitrite NEG Urine Bilirubin NEG Urine Urobilinogen LESS THAN 2.0 MG/DL Urine Leukocyte Esterase LARGE Urine RBC 14 /hpf Urine WBC 7 /hpf Urine Squamous Epithelial Cells 8 /hpf Urine Transitional Epithelial Cells <1 /hpf Urine Bacteria MOD /hpf Urine Mucus FEW /lpf Urine Yeast (Budding) RARE Microscopic Urinalysis Comment CULTURE INDICATED MDM Medical Decision Making Medical Screen Exam Complete: Yes Emergency Medical Condition: Yes Medical Record Reviewed: Yes Differential Diagnosis UTI versus versus medical clearance Narrative Course 22-year-old female presents to the emergency department for evaluation of dysuria. Patient stated the emergency department 2 days ago and evaluated for the same. She has no appointment on Saturday with her pipeline engineer. At last visit, 2 days ago, she had ultrasound, pelvic exam, labs were completed. All was reassuring. UA is ordered and pending. UA shows large leukocyte esterase, 7 WBCs, moderate bacteria, rare yeast. Patient will be discharged prescription for Macrobid and clotrimazole vulvovaginal cream. She is to follow-up with her pipeline engineer on Saturday as already scheduled. The patient was discharged in stable condition with instructions, including return instructions and follow up instructions. Diagnosis Primary Impression: Urinary tract infection Qualified Codes: N30.00 - Acute cystitis without hematuria Referrals: [employer] Patient Instructions: General Instructions, Urinary Tract Infection in (ED) Additional Instructions: Take Macrobid as directed until gone. Use clotrimazole vaginal cream as directed. Follow-up with your pipeline engineer. Return to the emergency department for any acute worsening of symptoms. Med/Other Pt SpecificInfo: Prescription(s) given Scripts Clotrimazole Vaginal (Clotrimazole 7 Vaginal) 1% Cream 1 APPL VAGINAL HS for Fungal Infection, #45 GM 0 Refills Prov: Darby Larson 12/16/17 Nitrofurantoin Monohydrate Macrocrystals (Macrobid) 100 Mg Capsule 100 MG PO BID for Infection for 7 Days, #14 CAP 0 Refills Prov: Darby Larson 12/16/17 Disposition: 01 DISCHARGE HOME Condition: Stable Darby Larson Dec 16, 2017 13:50
[2017-12-16 14:09] LABS: BACTERIA, URINE MOD /hpf; BILIRUBIN, URINE NEG (NEG); BLOOD, URINE TRACE (NEG); GLUCOSE,URINE NEG (NEG); KETONE, URINE 40 mg/dL (NEG); MUCUS URINE FEW /lpf (OCC); NITRITE,URINE NEG (NEG); SQUAMOUS EPITHELIAL CELL URINE 8 /hpf (0-5); TRANSITIONAL EPI CELLS, URINE <1 /hpf; URINE COLOR YELLOW (YELLW/STRAW); URINE LEUKOCYTE ESTERASE LARGE (NEG)
[2017-12-16] MEDS ORDERED: MACR100C2 PO (14:33)
[2017-12-16] MEDS ORDERED: CLOT1CRE23 VAGINAL (14:33)
== END 2017-12-16 14:45 | disposition home or self-care (01) ==
LOC: NEPE 12:23
DX: O23.10 Infections of bladder in pregnancy, unspecified trimester (principal); N30.00 Acute cystitis without hematuria; Z3A.00 Weeks of gestation of pregnancy not specified
CPT/HCPCS: 81001; 84703; 87086; 99283